=== PATIENT | male | born 1985 | race Caucasian/White ===

== ENCOUNTER 2016-08-07 14:17 | Emergency (ER) | payer BC ==
--- NOTE | 2016-08-10 13:18 | ER ---
ADMIT: 08/07/2016 RM/LOC: ER [facility] MR#: [id number] [address] [address] BHAKTI GUNN [address] [place] [address] Emergency Room Report SEX: M AGE: 31 : 1985 DATE: 08/07/2016 TIME: 1417 hours. Please refer to my T-sheet for complete H and P. Briefly patient is a 31-year- old, comes in with a smashed left finger. 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 He said it feels numb from the distal finger and it caused a laceration. He is right handed. PHYSICAL EXAMINATION: His left index finger has a little bit of an open laceration, little bit more of an abrasion, nonsuturable. His tendons are all intact. He is neurovascularly intact distally except this numbness. Cap refills very brisk. No deformity. EMERGENCY DEPARTMENT COURSE: We cleansed the abrasion. Covered. X-ray showed no fracture, we updated his tetanus shot. Gave him 800 Motrin as he wanted nothing stronger. He is ready for discharge. ASSESSMENT: 1. Contusion, left index finger as described. 2. Superficial abrasion-small laceration. 3. Numbness to the index finger, most likely secondary to the contusion. PLAN: Rest ice, elevate, keep clean. Return if worse. Keflex 500 b.i.d. for 5 days. We updated his tetanus. Follow up with Dr. Giron. Fadi Hong MD/ yolanda JOB #: [id number] CC: Fadi Hong MD, Attending Physician Constantino iGron DO, Family Physician
== END 2016-08-07 15:25 | disposition home or self-care (01) ==
LOC: ER 14:17
DX: S61.211A Laceration without foreign body of left index finger without damage to nail, initial encounter (principal); R20.0 Anesthesia of skin; Z23 Encounter for immunization; W23.0XXA Caught, crushed, jammed, or pinched between moving objects, initial encounter; Y92.009 Unspecified place in unspecified non-institutional (private) residence as the place of occurrence of the external cause